=== PATIENT | female | born 1995 | race Caucasian/White ===

== ENCOUNTER 2017-01-08 20:59 | Inpatient (IN) | payer OTHER, MEDICAID ==
[2017-01-08] VITALS (20 sets, daily range): BP systolic 113–154; BP diastolic 83–112; PULSE 70–104; RESP 16–20; TEMP 98.3; O2SAT 98–100
[~2017-01-08 20:59] MED LIST: PROM25TA5 PO; Z.0.BCPILL PO
[2017-01-08] MEDS ORDERED: LACTATED RINGER'S 1000 ML INJ 1,000 ML IV SCH (21:26)
[2017-01-08] MEDS ORDERED: LACTATED RINGER'S 1000 ML INJ 1,000 ML IV PRN (21:26)
--- NOTE | 2017-01-08 21:26 | PD ---
HPI Chief Complaint Contractions Date Seen: Jan 08, 2017 Time Seen: 21:22 Travel History International Travel<30 Days: No Contact w/Intl Traveler<30Days: No Known Affected Area: No History of Present Illness HPI 21-year-old white female who is at 39 weeks and 5 days comes in complaining of contractions since 4 PM today. They sick contractions and gotten quite a bit more intense and closer together. She was set up for an induction tomorrow morning at 8 AM. Patient denies any antepartum complications and states that she is group B strep negative. Para: 0 : 1 History Past Medical History Medical History: Denies Significant Hx Past Surgical History Surgical History: No Previous Surgery Family History Family History: Negative Social History Alcohol Use: No Tobacco Use: No Substance Abuse: No Allergies-Medications (Allergen,Severity, Reaction): Coded Allergies: Bactrim (Verified Allergy, Intermediate, Nausea/Vomiting, 06/05/16) *MDRO Multi-Drug Resistant Organism (Unverified Allergy, Unknown, 06/05/16 ) C.diff 12/2013 Home Meds Active Scripts Promethazine (Phenergan)25 Mg Tab12.5 Mg PO Q6H PRN (Nausea/Vomiting) #10 TAB Ref 0 Prov:David Reed MD 06/05/16 Reported Medications Miscellaneous ( Control Pills) Tab1 Tab PO DAILY 12/30/13 Review of Systems Except as stated in HPI: all other systems reviewed are Neg Physical Exam Narrative GENERAL: Well-nourished, well-developed patient. Patient is vigorously moving over the bed due to pain SKIN: Warm and dry. HEAD: Normocephalic and atraumatic. EYES: No scleral icterus. No injection or drainage. ENT: No nasal drainage noted. Mucous membranes pink. Airway patent. NECK: Supple, trachea midline. No JVD. CARDIOVASCULAR: Regular rate and rhythm without murmurs, gallops, or rubs. RESPIRATORY: Breath sounds equal bilaterally. No accessory muscle use. ABDOMEN/GI: Abdomen soft, non-tender, bowel sounds present, no rebound, no guarding Gravid to [-38] weeks size Fundal Height: [-] GENITOURINARY: External Genitalia: intact and normal in appearance BUS glands: [Normal-] Cervix: [Posterior-] Dilatation: [-1] Effacement: [-80] Station: [--3] Presentation: [Vertex-] Membranes: [intact ] Uterine Contractions: [Every 3-5-] FHT's: Category: [-1] Baseline: [140-] Reactive: [-Moderate] Variability: [-Moderate] Decels: [-Absent] EXTREMITIES: No cyanosis or edema. BACK: Nontender without obvious deformity. No CVA tenderness. NEUROLOGICAL: Awake and alert. Motor and sensory grossly within normal limits. Five out of 5 muscle strength in all muscle groups. Normal speech. Data Data Vital Signs Reviewed: Yes MDM Plan 21-year-old at 39 weeks and 5 days with contractions, patient was set up for an induction tomorrow Group B strep negative per patient and spouse Will admit for pain control due to the level of pain that she is experiencing, will start with IV pain medication Dr. Gordon notified and will attempt to find records Diagnosis Diagnosis: Primary Impression: 39 weeks gestation of Additional Impression: Irregular uterine contractions Maritza Garcias MD Jan 08, 2017 21:26
[2017-01-08] MEDS ORDERED: ONDANSETRON HCL 4 MG/2 ML VIAL IV PRN (21:30)
[2017-01-08] MEDS ORDERED: MINERAL OIL 10 ML VIAL TOPICAL PRN (21:30)
[2017-01-08] MEDS ORDERED: LIDOCAINE HCL 1% 50 ML VIAL INFIL PRN (21:30)
[2017-01-08] MEDS ORDERED: CITRIC ACID-SODIUM CITRATE LIQ 30 ML UDC PO SCH (21:30)
[2017-01-08] MEDS ORDERED: OXYTOCIN 30 UNITS-500ML PREMIX 500 ML IV ONE (21:30)
[2017-01-08] MEDS ORDERED: SODIUM CHLORID 0.9% 500 ML INJ 500 ML IV PRN (21:30)
[2017-01-08] MEDS ORDERED: LIDOCAINE HCL 1% 50 ML VIAL I-DERMAL PRN (21:30)
[2017-01-08] MEDS ORDERED: SODIUM CHLOR 0.9% 1000 ML INJ 1,000 ML IV PRN (21:46)
[2017-01-08 22:18] LABS: AUTOMATED NEUTROPHIL # 5.9 TH/MM3 (1.8-7.7); BASOPHIL % 0.4 % (0.0-2.0); EOSINOPHIL % 0.1 % (0.0-4.0); HEMATOCRIT 35.8 % (35.0-46.0); HEMO FLAGS DIFF FINAL; LYMPH % 13.5 % (9.0-44.0); MEAN CORPUSCULAR HEMOGLOBIN 25.9 PG (27.0-34.0); MEAN CORPUSCULAR HGB CONC 31.9 % (32.0-36.0); MONO % 10.2 % (0.0-8.0); NEUT % 75.8 % (16.0-70.0); PLATELET COUNT 203 TH/MM3 (150-450); RED BLOOD COUNT 4.41 MIL/MM3 (4.00-5.30); RED CELL DISTRIBUTION WIDTH 15.1 % (11.6-17.2); WHITE BLOOD COUNT 7.7 TH/MM3 (4.0-11.0)
[2017-01-08] MEDS ORDERED: fentaNYL 2MCG-BUPIV 0.125% INJ 100 ML ONE (22:27)
[2017-01-08] MEDS ORDERED: DO NOT ADMINISTER ANTICOAGULANTS PRN (23:15)
[2017-01-08] MEDS ORDERED: NO SYSTEM NARCOTICS PRN (23:15)
[2017-01-08] MEDS ORDERED: ePHEDrine/NS 25 MG/5 ML SYR IV PRN (23:15)
[2017-01-08] MEDS ORDERED: fentaNYL 2MCG-BUPIV 0.125% 100 ML EPIDURAL SCH (23:15)
[2017-01-09] VITALS (26 sets, daily range): BP systolic 111–163; BP diastolic 73–109; PULSE 72–95; RESP 16–20; TEMP 98.1–98.9; O2SAT 98
--- NOTE | 2017-01-09 01:21 | PD.OB.DELI ---
Delivery Date: Jan 09, 2017 Anesthesia: Epidural Episiotomy: Right mediolateral Vaginal Delivery: Normal, Spontaneous Presentation: Occiput anterior Nuchal Cord: None Delayed cord clamping (45 sec): No (meconium no crying) Infant: Female One Minute : 8 Five Minute : 9 Weight: 7# 9 oz Placenta: Spontaneous delivery, Not Intact, Uterus explored + (retained membranes curretting performed) Laceration: Vaginal laceration, 2 deg Repair: Chromic running Estimated blood loss: 300 Gunnar Gordon MD Jan 09, 2017 01:21
--- NOTE | 2017-01-09 01:29 | HHI.HP ---
HPI Chief Complaint labor Date Seen: Jan 09, 2017 Time Seen: 00:15 Travel History International Travel<30 Days: No Contact w/Intl Traveler<30Days: No Known Affected Area: No History of Present Illness HPI LAbor since 5PM, 39 weeks Para: 0 : 1 History Past Medical History Medical History: Denies Significant Hx Obstetric History Obstetric History G1 Past Surgical History Narrative Surgical wisdom teeth Surgical History: No Previous Surgery Family History Family History: Negative Social History Alcohol Use: No Tobacco Use: No Substance Abuse: No Allergies-Medications (Allergen,Severity, Reaction): Coded Allergies: Bactrim (Verified Allergy, Intermediate, Nausea/Vomiting, 06/05/16) *MDRO Multi-Drug Resistant Organism (Unverified Allergy, Unknown, 06/05/16 ) C.diff 12/2013 Home Meds Active Scripts Promethazine (Phenergan)25 Mg Tab12.5 Mg PO Q6H PRN (Nausea/Vomiting) #10 TAB Ref 0 Prov:David Reed MD 06/05/16 Reported Medications Miscellaneous ( Control Pills) Tab1 Tab PO DAILY 12/30/13 Review of Systems Except as stated in HPI: all other systems reviewed are Neg Physical Exam Vital Signs Date Time Temp Pulse Resp B/P Pulse Ox O2 Delivery O2 Flow Rate FiO2 01/09/17 00:20 91 01/09/17 00:15 89 01/09/17 00:15 82 127/99 01/09/17 00:10 82 01/09/17 00:05 80 01/09/17 00:00 80 116/80 01/09/17 00:00 95 01/08/17 23:55 91 01/08/17 23:55 91 01/08/17 23:50 96 100 01/08/17 23:45 104 01/08/17 23:45 98 01/08/17 23:45 88 113/91 01/08/17 23:42 16 01/08/17 23:40 88 01/08/17 23:40 99 01/08/17 23:35 82 01/08/17 23:35 99 01/08/17 23:30 74 118/83 01/08/17 23:30 100 01/08/17 23:30 74 01/08/17 23:30 16 01/08/17 23:25 79 01/08/17 23:25 81 123/94 01/08/17 23:25 98 01/08/17 23:25 98 01/08/17 23:20 84 121/89 01/08/17 23:20 81 01/08/17 23:20 99 01/08/17 23:15 76 01/08/17 23:15 99 01/08/17 23:15 88 129/92 01/08/17 23:15 18 01/08/17 23:10 99 01/08/17 23:10 72 01/08/17 23:10 76 123/90 01/08/17 23:05 70 124/93 01/08/17 23:00 18 01/08/17 23:00 76 150/92 01/08/17 23:00 74 01/08/17 23:00 100 01/08/17 22:55 80 01/08/17 22:55 72 141/93 01/08/17 22:55 100 01/08/17 22:50 93 01/08/17 22:50 100 01/08/17 22:48 104 154/112 01/08/17 22:45 81 18 01/08/17 22:45 100 01/08/17 22:45 20 01/08/17 22:43 101 154/107 01/08/17 21:29 98.3 18 01/08/17 21:17 73 135/89 Narrative GENERAL: Well-nourished, well-developed patient. SKIN: Warm and dry. HEAD: Normocephalic and atraumatic. EYES: No scleral icterus. No injection or drainage. ENT: No nasal drainage noted. Mucous membranes pink. Airway patent. NECK: Supple, trachea midline. No JVD. CARDIOVASCULAR: Regular rate and rhythm without murmurs, gallops, or rubs. RESPIRATORY: Breath sounds equal bilaterally. No accessory muscle use. BREASTS: Bilateral exam showed no masses , no retractions, no nipple discharge. ABDOMEN/GI: Abdomen soft, non-tender, bowel sounds present, no rebound, no guarding Gravid to [-] weeks size Fundal Height: [-] GENITOURINARY: External Genitalia: intact and normal in appearance BUS glands: [-] Cervix: [-] Dilatation: [-] Effacement: [-] Station: [-] Presentation: [-] Membranes: [intact or ruptured] Uterine Contractions: [-] FHT's: Category: [-] Baseline: [-] Reactive: [-] Variability: [-] Decels: [-] EXTREMITIES: No cyanosis or edema. BACK: Nontender without obvious deformity. No CVA tenderness. NEUROLOGICAL: Awake and alert. Motor and sensory grossly within normal limits. Five out of 5 muscle strength in all muscle groups. Normal speech. Data Data Vital Signs Reviewed: Yes Orders Admit To Inpatient (01/08/17 ) Vital Signs (Adult) .Per protocol (01/08/17 21:26) Heart (01/08/17 21:) Amnioinfusion (01/08/17:) Urinary Catheter Management .ONCE (01/08/17 21:26) Lactated Ringer's 1000 Ml Inj (Lr 1000 M (01/08/17 21:26) Lactated Ringer's 1000 Ml Inj (Lr 1000 M (01/08/17 21:26) Sodium Chlorid 0.9% 500 Ml Inj (Ns 500 M (01/08/17 21:30) Sodium Chlor 0.9% 1000 Ml Inj (Ns 1000 M (01/08/17 21:46) Lidocaine 1% Inj (50 Ml) (Xylocaine 1% I (01/08/17 21:30) Citric Acid-Sodium Citrate Liq (Bicitra (01/08/17 21:30) Ondansetron Inj (Zofran Inj) (01/08/17 21:30) Fentanyl Inj (Fentanyl Inj) (01/08/17 21:30) Fentanyl Inj (Fentanyl Inj) (01/08/17 21:30) Complete Blood Count With Diff (01/08/17 21:) Hold Clot (01/08/17 21:) Abo/Rh Blood Type (01/08/17 21:) Rapid Plasma Regin (Rpr) W Ttr (01/08/17 21:26) Resp Oxygen Non Rebreathe Mask (01/08/17 ) ^ Epidural / Intrathecal Infus (01/08/17 21:26) Oxytocin 30 Units-500ml Premix (Pitocin (01/08/17 21:30) Lidocaine 1% Inj (50 Ml) (Xylocaine 1% I (01/08/17 21:30) Light Mineral Oil (Muri-Lube Oil) (01/08/17 21:30) Ob/Psych Drug Screen, Urine (01/08/17 21:26) Inpatient Certification (01/08/17 ) Ob (2e) Additional Admit Info (01/08/17 21:28) Fentanyl 2mcg-Bupiv 0.125% Inj (Fentanyl (01/08/17 22:27) ^ Place On Chart (01/08/17 ) ^ Medication Indications (01/08/17 ) Consent (01/08/17 ) ^ No Systemic Narcotics (01/08/17 ) ^ Call Anesthesiologist (01/08/17 ) ^ Discontinue Epidural Cathete (01/08/17 ) Anticoagulant Alert (01/08/17 ) ^ Epidural Alert (01/08/17 ) Misc Nursing Information (01/08/17 23:15) Misc Nursing Information (01/08/17 23:15) Fentanyl Inj (Fentanyl Inj) (01/08/17 23:15) Fentanyl 2mcg-Bupiv 0.125% Inj (Fentanyl (01/08/17 23:15) Ephedrine/Ns 25 Mg/5 Ml Syr (Ephedrine/N (01/08/17 23:15) Vital Signs (Adult) .QSHIFT (01/09/17 01:21) Activity Oob Ad Kaylee (01/09/17 01:21) Ice / Cold Pack PRN (01/09/17 01:21) Discontinue Iv (01/09/17 01:21) Sitz Bath PRN (01/09/17 01:21) ^ Massage (01/09/17 01:21) ^ Rhogam (01/09/17 01:21) Urinary Catheter Management .PRN (01/09/17 01:21) Diet Regular Basic (01/09/17 Breakfast) Sodium Chloride 0.9% Flush (Ns Flush) (01/09/17 09:00) Sodium Chloride 0.9% Flush (Ns Flush) (01/09/17 01:30) Oxytocin 30 Units-500ml Premix (Pitocin (01/09/17 01:30) Acetaminophen (Tylenol) (01/09/17 01:30) Ibuprofen (Motrin) (01/09/17 01:30) Oxycodone-Acetamin 5-325 Mg (Percocet (01/09/17 01:30) Oxycodone-Acetamin 5-325 Mg (Percocet (01/09/17 01:30) Benzocaine 20% Top Spr (Americaine 20% T (01/09/17 01:30) Witch Yisel-Glycerin Pad (Tucks Pads) (01/09/17 01:30) Docusate Sodium-Senna (Sydnie-Colace) (01/09/17 01:30) Zolpidem (Ambien) (01/09/17 01:30) Npdgziq-Hpakh-Uuqfpcs Inj (M-M-R Ii Inj) (01/09/17 16:00) Qrdm-Fqy-Vktavc (Booster) Inj (Boostrix (01/09/17 16:00) Al-Mag Hy-Si 40-40-4 Mg/Ml Liq (Mag-Al P (01/09/17 01:30) Ondansetron Odt (Zofran Odt) (01/09/17 01:30) Labs Laboratory Tests Test 01/08/17 21:40 White Blood Count 7.7 Red Blood Count 4.41 Hemoglobin 11.4 Hematocrit 35.8 Mean Corpuscular Volume 81.0 Mean Corpuscular Hemoglobin 25.9 Mean Corpuscular Hemoglobin 31.9 Concent Red Cell Distribution Width 15.1 Platelet Count 203 Mean Platelet Volume 9.1 Neutrophils (%) (Auto) 75.8 Lymphocytes (%) (Auto) 13.5 Monocytes (%) (Auto) 10.2 Eosinophils (%) (Auto) 0.1 Basophils (%) (Auto) 0.4 Neutrophils # (Auto) 5.9 Lymphocytes # (Auto) 1.0 Monocytes # (Auto) 0.8 Eosinophils # (Auto) 0.0 Basophils # (Auto) 0.0 CBC Comment DIFF FINAL Differential Comment Blood Type O POSITIVE Blood Bank Comment Band and Hold Assessment/Plan Problem List: (1) 39 weeks gestation of Assessment and Plan active labor at 1 cm Gunnar Gordon MD Jan 09, 2017 01:29
[2017-01-09] MEDS ORDERED: SODIUM CHLORIDE 0.9% FLUSH 10 ML FLUSH IV FLUSH PRN (01:30)
[2017-01-09] MEDS ORDERED: OXYTOCIN 30 UNITS-500ML PREMIX 500 ML IV SCH (01:30)
[2017-01-09] MEDS ORDERED: BENZOCAINE 20% TOPICAL SPRAY 60 ML CAN TOPICAL PRN (01:30)
[2017-01-09] MEDS ORDERED: WITCH HAZEL 50%/GLYCERIN 12.5% 40 PAD JAR TOPICAL PRN (01:30)
[2017-01-09] MEDS ORDERED: ALUMINUM/MAGNESIUM/SIMETH 30 ML CUP PO PRN (01:30)
[2017-01-09] MEDS ORDERED: ONDANSETRON ODT 4 MG TAB PO PRN (01:30)
[2017-01-09] MEDS ORDERED: ZOLPIDEM TARTRATE 5 MG TAB PO PRN (01:30)
[2017-01-09] MEDS ORDERED: DOCUSATE SODIUM 50 MG/SENNA 8.6 MG TAB PO PRN (01:30)
[2017-01-09] MEDS ORDERED: oxyCODONE/ACETAMINOPHEN 5 MG/325 MG TAB PO PRN ×2 (01:30)
[2017-01-09] MEDS ORDERED: ceFAZolin 1,000 MG/NS 100 ML IV ONE ×2 (02:15)
[2017-01-09 04:30] LABS: AMPHETAMINE, URINE NEG (NEG); BARBITURATES, URINE NEG (NEG); COCAINE, URINE NEG (NEG)
[2017-01-09] MEDS ORDERED: SODIUM CHLORIDE 0.9% FLUSH 10 ML FLUSH IV FLUSH SCH (09:00)
[2017-01-09] MEDS: IBUPROFEN 600 MG TAB PO PRN ×3 (11:15→23:34)
[2017-01-09] MEDS: ACETAMINOPHEN 325 MG TAB PO PRN ×3 (11:15→23:35)
[2017-01-09] MEDS ORDERED: DIPHTH/TETANUS/ACEL PERTUSSIS (BOOSTER) 0.5 ML VIAL/PFS IM ONE (16:00)
[2017-01-09] MEDS ORDERED: MEASLES, MUMPS, RUBELLA VACCINE 0.5 ML VIAL SQ ONE (16:00)
[2017-01-10 08:00] VITALS: BP 139/98; PULSE 84; RESP 16; TEMP 98.1
--- NOTE | 2017-01-10 08:44 | HHI.OB ---
Subjective Post Day: 2 Remarks doing well dc home Objective Vitals/I&O Vital Signs Date Time Temp Pulse Resp B/P Pulse Ox O2 Delivery O2 Flow Rate FiO2 01/09/17 19:45 98.1 86 18 135/92 01/09/17 12:00 111/79 01/09/17 12:00 80 16 Objective Remarks GENERAL: Well-nourished, well-developed patient. ABDOMEN/GI: Abdomen soft, non-tender. Fundus: Firm, non-tender at umbilicus. GENITOURINARY: Light to moderate bleeding. EXTREMITIES: No cyanosis or edema, non-tender, without signs of DVT. Medications and IVs Current Medications Medications (Trade) Dose Ordered Sig/Tahir Route Start Time Stop Time Status Last Admin (NS Flush) 2 ml BID IV FLUSH 01/09/17 09:00 (NS Flush) 2 ml UNSCH PRN IV FLUSH 01/09/17 01:30 (Tylenol) 650 mg Q4H PRN PO 01/09/17 01:30 01/09/17 23:35 (Motrin) 600 mg Q6H PRN PO 01/09/17 01:30 01/09/17 23:34 (Percocet 5-325 Mg) 1 tab Q4H PRN PO 01/09/17 01:30 (Percocet 5-325 Mg) 2 tab Q4H PRN PO 01/09/17 01:30 (Americaine 20% Top Spr) 1 spray Q4H PRN TOPICAL 01/09/17 01:30 01/09/17 11:14 (Tucks Pads) 1 applic QID PRN TOPICAL 01/09/17 01:30 01/09/17 11:14 (Sydnie-Colace) 2 tab Q12H PRN PO 01/09/17 01:30 (Ambien) 5 mg HS PRN PO 01/09/17 01:30 (Mag-Al Plus Susp Liq) 15 ml Q8H PRN PO 01/09/17 01:30 (Zofran Odt) 4 mg Q6H PRN PO 01/09/17 01:30 Assessment/Plan Problem List: (1) 39 weeks gestation of Assessment and Plan dc home SP kate Gordon,Gunnar Summers MD Jan 10, 2017 08:44
--- NOTE | 2017-01-10 08:48 | HHI.DCPOC ---
Discharge Care Plan Diagnosis: (1) Spontaneous vaginal delivery Report Symptoms to Your Doctor -Temperature above 100.5 degrees -Redness, of incision or excessive or foul smelling drainage -Unusual pain or calf pain -Increased vaginal bleeding -Painful or difficulty urinating -Feelings of extreme sadness or anxiety after 2 weeks Goals to Promote Your Health * To prevent worsening of your condition and complications * To maintain your health at the optimal level Directions to Meet Your Goals Take your medications as prescribed Follow your dietary instruction Follow activity as directed Ensure plenty of rest for recovery Drink fluids for hydration Keep your appointments as scheduled Take your immunizations and boosters as scheduled If your symptoms worsen call your PCP, if no PCP go to Urgent Care Center or Emergency Room Smoking is Dangerous to Your Health. Avoid second hand smoke Call the 24-hour crisis hotline for domestic abuse at Gunnar Gordon MD Jan 10, 2017 08:48
[2017-01-10] MEDS ORDERED: OXYC1TAB63 PO (08:49)
--- NOTE | 2017-01-10 08:51 | HHI.DS ---
Admission Date Jan 08, 2017 at 21:30 Discharge Date: Jan 10, 2017 Admitting Diagnosis Diagnosis: (1) Spontaneous vaginal delivery Diagnosis: Principal Delivery Date: Jan 09, 2017 Vaginal Delivery: Normal, Spontaneous : Female Brief History LAbor since 5PM, 39 weeks Hospital Course doing wellSP dc anuradha 01/10/2017 Pt Condition on Discharge: Good Discharge Disposition: Discharge Home Discharge Instructions Diet Instructions: As Tolerated, No Restrictions Activities You Can Perform: Regular-No Restrictions, Pelvic Rest Activities to Avoid: Driving for 24 hrs Follow up Referrals: [facility] - 2 Weeks @ [facility] with Gunnar Gordon MD New Medications: Oxycodone-Acetaminophen (Oxycodone-Acetaminophen) 5-325 mg Tab 2 TAB PO Q4H PRN PAIN SCALE 6 TO 10 #20 TAB Continued Medications: Promethazine (Phenergan) 25 Mg Tab 12.5 MG PO Q6H PRN Nausea/Vomiting #10 Ref 0 TAB Discontinued Medications: Miscellaneous ( Control Pills) Tab 1 TAB PO DAILY TAB Gunnar Gordon MD Jan 10, 2017 08:51
[2017-01-10] MEDS: ACETAMINOPHEN 325 MG TAB PO PRN (09:03)
[2017-01-10] MEDS: IBUPROFEN 600 MG TAB PO PRN ×2 (09:03→15:24)
[2017-01-10 14:20] LABS: RAPID PLASMA REAGIN SCREEN NON-REACTIVE (NON-REACTVE)
[2017-01-12 13:38] LABS: BATH SALTS (MDPV) UR NEG (NEG); ECSTASY (MDMA) UR NEG (NEG); HEROIN (6-ACETYLMORPHINE) UR NEG (NEG); K2 SPICE UR NEG (NEG); OBMETHADONE UR NEG (NEG); PHENCYCLIDINE URINE NEG (NEG)
[2017-01-12 13:39] LABS: GABAPENTIN UR NEG (NEG); HYDROMORPHONE U NEG (NEG); OXYCODONE (PERCODAN) NEG (NEG)
== END 2017-01-10 18:27 | disposition home or self-care (01) | DRG 775 ==
LOC: HOBED 20:59 → H2EB 21:30 → H1EA 01-09 03:56
PROVIDERS: ADMIT Obstetrics & Gynecology; ATTEND Obstetrics & Gynecology
PROC: 10E0XZZ Delivery of Products of Conception, External Approach (ICD-10-PCS; principal; 2017-01-08)
PROC: 0W8NXZZ Division of Female Perineum, External Approach (ICD-10-PCS; 2017-01-08)
PROC: 3E0R3CZ (ICD-10-PCS; 2017-01-08)
PROC: 00HU33Z Insertion of Infusion Device into Spinal Canal, Percutaneous Approach (ICD-10-PCS; 2017-01-08)
DX: O71.4 Obstetric high vaginal laceration alone (principal); O77.0 Labor and delivery complicated by meconium in amniotic fluid; Z37.0 Single live birth; Z3A.39 39 weeks gestation of pregnancy
CPT/HCPCS: 80307; 85025; 86592; 86900; 86901; 90715; G0481; J0690; J2405; J3010; J7120

== ENCOUNTER 2017-09-30 23:17 | Emergency (ER) | payer OTHER, MEDICAID ==
[~2017-09-30 23:17] MED LIST changes: +OXYC1TAB63 PO; -Z.0.BCPILL PO
[2017-09-30 23:51] VITALS: BP 107/56; PULSE 125; RESP 28; TEMP 99.7; O2SAT 100
[2017-10-01 00:53] VITALS: BP 112/72; PULSE 112; RESP 18; O2SAT 99
[2017-10-01] MEDS ORDERED: SODIUM CHLOR 0.9% 1000 ML INJ 1,000 ML IV SCH (02:43)
[2017-10-01] MEDS ORDERED: ONDANSETRON HCL 4 MG/2 ML VIAL IVP ONE (02:45)
[2017-10-01] MEDS ORDERED: KETOROLAC TROMETHAMINE 30 MG/ML (IVP) VIAL IVP ONE (02:45)
[2017-10-01] MEDS ORDERED: SODIUM CHLORIDE 0.9% FLUSH 10 ML FLUSH IV FLUSH PRN (02:45)
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
[2017-10-01 02:47] VITALS: O2SAT 99
[2017-10-01 03:09] LABS: AUTOMATED NEUTROPHIL # 7.2 TH/MM3 (1.8-7.7); BASOPHIL % 0.1 % (0.0-2.0); HEMATOCRIT 40.8 % (35.0-46.0); HEMOGLOBIN 13.8 GM/DL (11.6-15.3); LYMPH % 5.9 % (9.0-44.0); LYMPHOCYTE # 0.5 TH/MM3 (1.0-4.8); MEAN CELL VOLUME 84.4 FL (80.0-100.0); MEAN CORPUSCULAR HEMOGLOBIN 28.6 PG (27.0-34.0); MEAN CORPUSCULAR HGB CONC 33.9 % (32.0-36.0); MONO % 4.9 % (0.0-8.0); MONOCYTE # 0.4 TH/MM3 (0-0.9); NEUT % 89.1 % (16.0-70.0); PLATELET COUNT 217 TH/MM3 (150-450); RED BLOOD COUNT 4.84 MIL/MM3 (4.00-5.30); RED CELL DISTRIBUTION WIDTH 13.8 % (11.6-17.2); WHITE BLOOD COUNT 8.1 TH/MM3 (4.0-11.0)
[2017-10-01 03:26] LABS: ALBUMIN 4.1 GM/DL (3.4-5.0); ALT (GPT) 14 U/L (10-53); AST (GOT) 10 U/L (15-37); BICARBONATE 21.5 MEQ/L (21.0-32.0); BLOOD UREA NITROGEN 17 MG/DL (7-18); CALCIUM 9.3 MG/DL (8.5-10.1); CHLORIDE 108 MEQ/L (98-107); CREATININE 0.77 MG/DL (0.50-1.00); GLOMERULAR FILTRATION RATE 93 ML/MIN (>89); GLUCOSE,RANDOM 140 MG/DL (74-106); SODIUM (NA) 141 MEQ/L (136-145)
[2017-10-01 03:28] LABS: ALKALINE PHOSPHATASE 75 U/L (45-117); TOTAL BILIRUBIN ADULT 0.8 MG/DL (0.2-1.0); TOTAL PROTEIN 8.3 GM/DL (6.4-8.2)
[2017-10-01 04:04] LABS: AMORPHOUS SEDIMENT, URINE RARE; BILIRUBIN, URINE NEG (NEG); BLOOD, URINE NEG (NEG); GLUCOSE,URINE 1000 mg/dL (NEG); KETONE, URINE 150 mg/dL (NEG); MUCUS URINE MANY /lpf (OCC); NITRITE,URINE NEG (NEG); PH, URINE 5.5 (5.0-8.5); SQUAMOUS EPITHELIAL CELL URINE 2 /hpf (0-5); URINE COLOR YELLOW (YELLW/STRAW); URINE LEUKOCYTE ESTERASE NEG (NEG)
[2017-10-01] MEDS ORDERED: ZOFR4TAB3 SL (04:43)
[2017-10-01] MEDS ORDERED: DICY10 PO (04:43)
== END 2017-10-01 04:48 | disposition home or self-care (01) ==
LOC: NEPC 23:17
DX: K52.9 Noninfective gastroenteritis and colitis, unspecified (principal)
CPT/HCPCS: 80053; 81001; 83690; 84703; 85025; 96361; 96374; 96375; 99284; J1885; J2405; J7030